=== PATIENT | male | born 2000 | race Caucasian/White ===

== ENCOUNTER 2018-01-14 12:09 | Emergency (ER) | payer OTHER ==
[2018-01-14] MEDS: IBUPROFEN 600 MG TAB PO (14:36)
== END 2018-01-14 14:50 | disposition home or self-care (01) ==
LOC: FTE 12:09
DX: S19.9XXA Unspecified injury of neck, initial encounter (principal); V49.40XA Driver injured in collision with unspecified motor vehicles in traffic accident, initial encounter
CPT/HCPCS: 72040; 99283-25